=== PATIENT | male | born 1950 | race Caucasian/White ===

== ENCOUNTER 2017-01-18 10:29 | Emergency (ER) | payer OTHER ==
[~2017-01-18] VITALS: Ht 175.3 cm; Wt 90.7 kg
[2017-01-18] MEDS ORDERED: METO50TA3 PO (10:37)
[2017-01-18] MEDS ORDERED: SERT25TA PO (10:37)
--- NOTE | 2017-01-18 10:42 | NUR ---
pt in room awaiting for md todd.
--- NOTE | 2017-01-18 11:07 | NUR ---
pt declined CXR
--- NOTE | 2017-01-18 11:12 | NUR ---
urine sent earlier/ct and xrays done. pt awaiting for lab draw.
--- NOTE | 2017-01-18 11:26 | NUR ---
Pt eloped from hospital.
== END 2017-01-18 11:29 | disposition left against medical advice (07) ==
LOC: ER 10:29
DX: F32.9 Major depressive disorder, single episode, unspecified (principal); I10 Essential (primary) hypertension
CPT/HCPCS: 93005; A4663